=== PATIENT | female | born 1990 | race Asian ===

== ENCOUNTER 2016-08-30 20:31 | Emergency (ER) | payer OTHER ==
--- NOTE | 2016-08-30 23:21 | EDDOCDS ---
Nurse's Notes [facility] Name: Marie Barajas Age: 26 yrs Sex: Female : 1990 Arrival Date: 08/30/2016 Time: 20:31 Bed Triage 2 Private MD: Vincent Martino MD Diagnosis: Sprain of metatarsophalangeal joint of left great toe Presentation: 08/30 20:34 Presenting complaint: Patient states: PER PT SHE TRIPPED & FELL THIS MORNING ON HER tm5 STAIRS INJURED HER GREAT TOE ON HER LEFT FOOT, LEFT GREAT TOE WITH SWELLING & BRUISING NOTED. Adult Sepsis Screening: The patient does not have new or worsening altered mentation. Patient's respiratory rate is less than 22. Systolic blood pressure is greater than 100. Patient has a qSOFA score of 0- Negative Sepsis Screen. Suicide/Homicide risk assessment- the patient denies having any suicidal and/or homicidal ideations and does not present with any other emotional, behavioral or mental health complaints. Status: The patient is a dependent. Transition of care: patient was not received from another setting of care. 20:34 Acuity: XAVIER Level 4 tm5 20:34 Method Of Arrival: Walkin/Carried/Asstd tm5 Triage Assessment: 20:36 General: Appears in no apparent distress, Behavior is appropriate for age, cooperative. tm5 Pain: Location: left first toe and Left first toenail Pain currently is 6 out of 10 on a pain scale. Quality of pain is described as throbbing. Pt Declines HIV testing. Neurological: Level of Consciousness is awake, alert, Oriented to person, place, time. Respiratory: Airway is patent Respiratory effort is even, unlabored, Respiratory pattern is regular, symmetrical. Derm: Skin is pink, warm & dry. normal. Musculoskeletal: Swelling present in left first toe and Left first toenail Reports pain in left first toe and Left first toenail. DIRECTOR OF EVENT MANAGEMENT: 20:36 LMP N/A - control method tm5 Historical: - Allergies: no known allergies; - Home Meds: 1. BCP daily - PMHx: back pain; - PSHx: none; - Social history: Smoking status: Patient states was never smoker of tobacco. No barriers to communication noted, The patient speaks fluent [place]. - Family history: No immediate family members are acutely ill. - : The pt / caregiver states he / she is not on anticoagulants. Home medication list is obtained from the patient. - Exposure Risk Screening:: None identified. Screenin:38 Screening information is obtained from the patient. Fall risk: No risks identified. tm5 Assistance ADL's: requires no assistance with activities of daily living. Abuse/DV Screen: The patient / caregiver reports he/she is: not in a situation that causes fear, pain or injury. Nutritional screening: No deficits noted. Advance Directives: Currently, there is no health care proxy. There is no active DNR order. home support is adequate. Assessment: 22:34 General: Appears in no apparent distress, comfortable. Neurological: No deficits noted. nn1 Respiratory: No deficits noted. GI: No deficits noted. Musculoskeletal: Circulation, motion, and sensation intact Capillary refill < 3 seconds Range of motion limited in left first toe Bruising noted to left first toe. Patient reports she fell this AM on ice, patient states she has been walking all day and pain has become increasingly worse. Patient unable to move left first toe, sensation intact. 23:17 General: Left first toe carly taped to left second toe by provider, patient tolerated nn1 well. Patient understands discharge instructions at this time.. Neurological: Level of Consciousness is awake, alert. Respiratory: No deficits noted. Derm: Skin is pink, warm & dry. Vital Signs: 20:32 BP 112 / 82; Pulse 77; Resp 16; Temp 97.9; Pulse Ox 100% on R/A; Weight 96.16 kg; sew Height 5 ft. 5 in. (165.10 cm); Pain 6/10; 20:32 Body Mass Index 35.28 (96.16 kg, 165.10 cm) [facility] [place] Vitals: 20:32 Log In Time: August 30, 2016 at 20:31. [facility] ED Course: 20:32 Patient visited by Anika Campos. sew 20:32 Vincent Martino is Private Physician. sew 20:32 Patient moved to Waiting sew 20:33 Patient visited by Anika Campos. sew 20:33 Patient moved to Pre RCE sew 20:36 Triage Initiated tm5 22:31 Patient moved to Triage 2 nn1 22:35 Patient visited by Rodolfo Bella RN. nn1 22:43 Luis Santos PA is PHCP. mo1 22:43 Jeanmarie Medrano DO is Attending Physician. mo1 23:06 Patient visited by Luis Santos PA. mo1 23:13 Vincent Martino is Referral Physician. mo1 23:20 The patient / caregiver is instructed regarding the plan of care and ED course. nn1 23:20 No IV's were initiated during this patient's visit. No procedures done that require nn1 assistance. Order Results: There are currently no results for this order. Outcome: 23:13 Discharge ordered by Provider. mo1 23:20 Discharge Assessment: Patient awake, alert and oriented x 3. No cognitive and/or nn1 functional deficits noted. Patient verbalized understanding of disposition instructions. patient administered narcotics - no. The following High Risk Discharge criteria are identified: None. Discharged to home ambulatory. Condition: stable Condition: unchanged. No special radiology studies were completed. Property :Personal belongings accompany Pt. 23:20 Patient left the ED. nn1 Signatures: Anika Campos Michael, PA PA mo1 Rodolfo Bella RN RN nn1 Jessica LaceyRN RN tm5 [facility]
--- NOTE | 2016-08-30 23:21 | EDDOCDS ---
Physician Documentation [facility] Name: Marie Barajas Age: 26 yrs Sex: Female : 1990 Arrival Date: 08/30/2016 Time: 20:31 Bed Triage 2 Private MD: Vincent Martino MD Disposition: 08/30/16 23:13 Discharged to Home/Self Care. Impression: Sprain of metatarsophalangeal joint of left great toe. - Condition is Stable. - Discharge Instructions: Foot Sprain, Turf Toe. - Medication Reconciliation, Local Pharmacy Hours form. - Follow up: Vincent Martino; When: Call to arrange an appointment; Reason: Recheck today's complaints, Continuance of care. - Problem is new. - Symptoms are unchanged. Historical: - Allergies: no known allergies; - Home Meds: 1. BCP daily - PMHx: back pain; - PSHx: none; - Social history: Smoking status: Patient states was never smoker of tobacco. No barriers to communication noted, The patient speaks fluent Lao. - Family history: No immediate family members are acutely ill. - : The pt / caregiver states he / she is not on anticoagulants. Home medication list is obtained from the patient. - Exposure Risk Screening:: None identified. IMMUNOHEMATOLOGIST: 08/30 20:36 LMP N/A - control method tm5 Vital Signs: 20:32 BP 112 / 82; Pulse 77; Resp 16; Temp 97.9; Pulse Ox 100% on R/A; Weight 96.16 kg / 212 sew lbs; Height 5 ft. 5 in. (165.10 cm); Pain 6/10; 20:32 Body Mass Index 35.28 (96.16 kg, 165.10 cm) sew MDM: 22:10 Foot, Complete Ordered. EDMS 22:58 Toes Ordered. EDMS Signatures: Dispatcher [employer] EDMS Luis Santos PA PA mo1 Rodolfo Bella RN RN nn1 Jessica LaceyRN RN tm5 MTDD
--- NOTE | 2016-08-31 02:04 | REP ---
Clinical: Trauma. Technique: AP, lateral, bilateral oblique views left first toe . Findings: The osseous structures and joint spaces are intact and normal. There is no evidence for acute fracture or dislocation. Surrounding soft tissues are unremarkable. No subcutaneous emphysema or radiodense foreign body. Impression: Normal examination. No acute fracture or dislocation. Signed by Chris Souza MD 08/31/2016 01:55 A
--- NOTE | 2016-09-02 00:21 | EDDOCDS ---
Physician Documentation [facility] [place] Name: Marie Barajas Age: 26 yrs Sex: Female : 1990 Arrival Date: 08/30/2016 Time: 20:31 Bed Triage 2 Private MD: Vincent Martino MD Disposition: 08/30/16 23:13 Discharged to Home/Self Care. Impression: Sprain of metatarsophalangeal joint of left great toe. - Condition is Stable. - Discharge Instructions: Foot Sprain, Turf Toe. - Medication Reconciliation, Local Pharmacy Hours form. - Follow up: Vincent Martino; When: Call to arrange an appointment; Reason: Recheck today's complaints, Continuance of care. - Problem is new. - Symptoms are unchanged. Historical: - Allergies: no known allergies; - Home Meds: 1. BCP daily - PMHx: back pain; - PSHx: none; - Social history: Smoking status: Patient states was never smoker of tobacco. No barriers to communication noted, The patient speaks fluent Maltese. - Family history: No immediate family members are acutely ill. - : The pt / caregiver states he / she is not on anticoagulants. Home medication list is obtained from the patient. - Exposure Risk Screening:: None identified. NURSE PLASTICS: 08/30 20:36 LMP N/A - control method tm5 Vital Signs: 20:32 BP 112 / 82; Pulse 77; Resp 16; Temp 97.9; Pulse Ox 100% on R/A; Weight 96.16 kg / 212 sew lbs; Height 5 ft. 5 in. (165.10 cm); Pain 6/10; 23:21 BP 140 / 85; Pulse 65; Resp 18; Temp 98.0(T); Pulse Ox 97% on R/A; Pain 5/10; nn1 20:32 Body Mass Index 35.28 (96.16 kg, 165.10 cm) sew MDM: 22:10 Foot, Complete Ordered. EDMS 22:58 Toes Ordered. EDMS 08/31 11:06 T-Sheet-- Draft Copy was scanned into [employer] and attached to record. gb Signatures: Dispatcher [employer] EDMS Rama Triana, Reg Reg gb Luis Santos PA PA mo1 Rodolfo Bella,RN RN nn1 Jessica Lacey,RN RN tm5 The chart was reviewed and I authenticate all verbal orders and agree with the evaluation and treatment provided.Attachments: 11:06 T-Sheet-- Draft Copy gb Chart Complete MTDD
--- NOTE | 2016-09-02 00:21 | EDDOCDS ---
Physician Documentation [facility] Name: Marie Barajas Age: 26 yrs Sex: Female : 1990 Arrival Date: 08/30/2016 Time: 20:31 Bed Triage 2 Private MD: Vincent Martino MD Disposition: 08/30/16 23:13 Discharged to Home/Self Care. Impression: Sprain of metatarsophalangeal joint of left great toe. - Condition is Stable. - Discharge Instructions: Foot Sprain, Turf Toe. - Medication Reconciliation, Local Pharmacy Hours form. - Follow up: Vincent Martino; When: Call to arrange an appointment; Reason: Recheck today's complaints, Continuance of care. - Problem is new. - Symptoms are unchanged. Historical: - Allergies: no known allergies; - Home Meds: 1. BCP daily - PMHx: back pain; - PSHx: none; - Social history: Smoking status: Patient states was never smoker of tobacco. No barriers to communication noted, The patient speaks fluent Bengali. - Family history: No immediate family members are acutely ill. - : The pt / caregiver states he / she is not on anticoagulants. Home medication list is obtained from the patient. - Exposure Risk Screening:: None identified. MATERIALS MANAGEMENT CLERK: 08/30 20:36 LMP N/A - control method tm5 Vital Signs: 20:32 BP 112 / 82; Pulse 77; Resp 16; Temp 97.9; Pulse Ox 100% on R/A; Weight 96.16 kg / 212 sew lbs; Height 5 ft. 5 in. (165.10 cm); Pain 6/10; 23:21 BP 140 / 85; Pulse 65; Resp 18; Temp 98.0(T); Pulse Ox 97% on R/A; Pain 5/10; nn1 20:32 Body Mass Index 35.28 (96.16 kg, 165.10 cm) sew MDM: 22:10 Foot, Complete Ordered. EDMS 22:58 Toes Ordered. EDMS 08/31 11:06 T-Sheet-- Draft Copy was scanned into [employer] and attached to record. gb Signatures: Dispatcher [employer] EDMS Rama Triana, Reg Reg gb Luis Santos PA PA mo1 Rodolfo Bella,RN RN nn1 Jessica Lacey,RN RN tm5 The chart was reviewed and I authenticate all verbal orders and agree with the evaluation and treatment provided.Attachments: 11:06 T-Sheet-- Draft Copy gb Chart Complete MTDD
--- NOTE | 2016-09-02 00:21 | EDDOCDS ---
Nurse's Notes [facility] Name: Marie Barajas Age: 26 yrs Sex: Female : 1990 Arrival Date: 08/30/2016 Time: 20:31 Bed Triage 2 Private MD: Vincent Martino MD Diagnosis: Sprain of metatarsophalangeal joint of left great toe Presentation: 08/30 20:34 Presenting complaint: Patient states: PER PT SHE TRIPPED & FELL THIS MORNING ON HER tm5 STAIRS INJURED HER GREAT TOE ON HER LEFT FOOT, LEFT GREAT TOE WITH SWELLING & BRUISING NOTED. Adult Sepsis Screening: The patient does not have new or worsening altered mentation. Patient's respiratory rate is less than 22. Systolic blood pressure is greater than 100. Patient has a qSOFA score of 0- Negative Sepsis Screen. Suicide/Homicide risk assessment- the patient denies having any suicidal and/or homicidal ideations and does not present with any other emotional, behavioral or mental health complaints. Status: The patient is a dependent. Transition of care: patient was not received from another setting of care. 20:34 Acuity: XAVIER Level 4 tm5 20:34 Method Of Arrival: Walkin/Carried/Asstd tm5 Triage Assessment: 20:36 General: Appears in no apparent distress, Behavior is appropriate for age, cooperative. tm5 Pain: Location: left first toe and Left first toenail Pain currently is 6 out of 10 on a pain scale. Quality of pain is described as throbbing. Pt Declines HIV testing. Neurological: Level of Consciousness is awake, alert, Oriented to person, place, time. Respiratory: Airway is patent Respiratory effort is even, unlabored, Respiratory pattern is regular, symmetrical. Derm: Skin is pink, warm & dry. normal. Musculoskeletal: Swelling present in left first toe and Left first toenail Reports pain in left first toe and Left first toenail. BILINGUAL SALES ASSISTANT: 20:36 LMP N/A - control method tm5 Historical: - Allergies: no known allergies; - Home Meds: 1. BCP daily - PMHx: back pain; - PSHx: none; - Social history: Smoking status: Patient states was never smoker of tobacco. No barriers to communication noted, The patient speaks fluent Egyptian. - Family history: No immediate family members are acutely ill. - : The pt / caregiver states he / she is not on anticoagulants. Home medication list is obtained from the patient. - Exposure Risk Screening:: None identified. Screenin:38 Screening information is obtained from the patient. Fall risk: No risks identified. tm5 Assistance ADL's: requires no assistance with activities of daily living. Abuse/DV Screen: The patient / caregiver reports he/she is: not in a situation that causes fear, pain or injury. Nutritional screening: No deficits noted. Advance Directives: Currently, there is no health care proxy. There is no active DNR order. home support is adequate. Assessment: 22:34 General: Appears in no apparent distress, comfortable. Neurological: No deficits noted. nn1 Respiratory: No deficits noted. GI: No deficits noted. Musculoskeletal: Circulation, motion, and sensation intact Capillary refill < 3 seconds Range of motion limited in left first toe Bruising noted to left first toe. Patient reports she fell this AM on ice, patient states she has been walking all day and pain has become increasingly worse. Patient unable to move left first toe, sensation intact. 23:17 General: Left first toe carly taped to left second toe by provider, patient tolerated nn1 well. Patient understands discharge instructions at this time.. Neurological: Level of Consciousness is awake, alert. Respiratory: No deficits noted. Derm: Skin is pink, warm & dry. Vital Signs: 20:32 BP 112 / 82; Pulse 77; Resp 16; Temp 97.9; Pulse Ox 100% on R/A; Weight 96.16 kg; sew Height 5 ft. 5 in. (165.10 cm); Pain 6/10; 23:21 BP 140 / 85; Pulse 65; Resp 18; Temp 98.0(T); Pulse Ox 97% on R/A; Pain 5/10; nn1 20:32 Body Mass Index 35.28 (96.16 kg, 165.10 cm) [facility] [place] Vitals: 20:32 Log In Time: August 30, 2016 at 20:31. [facility] ED Course: 20:32 Patient visited by Anika Campos. sew 20:32 Vincent Martino is Private Physician. sew 20:32 Patient moved to Waiting sew 20:33 Patient visited by Anika Campos. sew 20:33 Patient moved to Pre RCE sew 20:36 Triage Initiated tm5 22:31 Patient moved to Triage 2 nn1 22:35 Patient visited by Rodolfo Bella RN. nn1 22:43 Luis Santos PA is PHCP. mo1 22:43 Jeanmarie Medrano DO is Attending Physician. mo1 23:06 Patient visited by Luis Santos PA. mo1 23:13 Vincent Martino is Referral Physician. mo1 23:20 The patient / caregiver is instructed regarding the plan of care and ED course. nn1 23:20 No IV's were initiated during this patient's visit. No procedures done that require nn1 assistance. 08/31 02:38 Toes Returned. EDOR 11:06 T-Sheet-- Draft Copy was scanned into [employer] and attached to record. Order Results: Radiology Order: Toes Test: Toes REASON FOR EXAMINATION: left greater toe; Clinical: Trauma.; ; Technique: AP, lateral, bilateral oblique views left first toe .; ; Findings: The osseous structures and joint spaces are intact and normal. There; is no evidence for acute fracture or dislocation. Surrounding soft tissues are; unremarkable. No subcutaneous emphysema or radiodense foreign body.; ; Impression:; Normal examination. No acute fracture or dislocation.; ; ; Signed by; Chris Souza MD 08/31/2016 01:55 A; Outcome: 08/30 23:13 Discharge ordered by Provider. mo1 23:20 Discharge Assessment: Patient awake, alert and oriented x 3. No cognitive and/or nn1 functional deficits noted. Patient verbalized understanding of disposition instructions. patient administered narcotics - no. The following High Risk Discharge criteria are identified: None. Discharged to home ambulatory. Condition: stable Condition: unchanged. No special radiology studies were completed. Property :Personal belongings accompany Pt. 23:20 Patient left the ED. nn1 Signatures: Dispatcher [employer] EDOR Rama Triana, Salbador Mercedesace Anika Luis Guzman PA PA mo1 Rodolfo Bella,MIKE RN nn1 Jessica Lacey RN RN tm5 Chart Complete MTDD
== END 2016-08-30 23:20 | disposition home or self-care (01) ==
LOC: M ED 20:31
DX: S93.522A Sprain of metatarsophalangeal joint of left great toe, initial encounter (principal); W01.10XA Fall on same level from slipping, tripping and stumbling with subsequent striking against unspecified object, initial encounter; Y92.019 Unspecified place in single-family (private) house as the place of occurrence of the external cause; Y93.01 Activity, walking, marching and hiking; Y99.8 Other external cause status; M54.9 Dorsalgia, unspecified

== ENCOUNTER → 2016-09-18 | Outpatient (REF) | payer OTHER | LOC: M LAB REF 11:05 | PROVIDERS: ATTEND Family Medicine | DX: Z12.4 Encounter for screening for malignant neoplasm of cervix (principal) ==

== ENCOUNTER → 2016-09-25 | Outpatient (REF) | payer OTHER ==
[2016-09-25 14:41] LABS: ANION GAP 9 MEQ/L (8-16); BLOOD UREA NITROGEN 11 MG/DL (7-18); CARBON DIOXIDE LEVEL 26 MEQ/L (21-32); CHLORIDE LEVEL 105 MEQ/L (98-107); CHOLESTEROL LEVEL 202 MG/DL (<200); CREATININE FOR GFR 0.67 MG/DL (0.55-1.02); FREE T4 0.95 NG/DL (0.76-1.46); GLOMERULAR FILTRATION RATE > 60.0 (>60); GLUCOSE, FASTING 112 MG/DL (70-105); POTASSIUM SERUM 4.7 MEQ/L (3.5-5.1); SODIUM LEVEL 140 MEQ/L (136-145); TRIGLYCERIDES LEVEL 186 MG/DL (<150)
== END ==
LOC: M SFHCLERA 08:50
PROVIDERS: ATTEND Family Medicine
DX: E28.2 Polycystic ovarian syndrome (principal)

== ENCOUNTER → 2016-09-27 | Outpatient (CLI) | payer OTHER ==
--- NOTE | 2016-09-28 16:09 | REP ---
THYROID ULTRASOUND: 09/27/2016: Clinical history: Enlarged thyroid on clinical examination. Findings: The bilateral thyroid lobes fairly symmetric. The right is 4.8 x 1.9 x 1.6 cm and the left lobe is 5 x 1.5 x 1.4 cm. Both lobes are somewhat heterogeneous. There is a hyperechoic area in the right lobe in its midportion about 4 x 2 x 5 mm. The isthmus has a thickness of 5 mm and was unremarkable. I do not see cyst or other solid mass. Impression: 1. Heterogeneous thyroid lobes, slightly prominent with one hyperechoic focus right mid pole about 4 x 5 x 2 mm that may be calcified. No cyst, fluid collection adjacent to the thyroid lobes in the neck or adenopathy. Findings most consistent with mild enlargement/goiter. Signed by Brennan Gonzalez MD 09/28/2016 04:58 P
== END ==
LOC: M LRY 13:50
PROVIDERS: ATTEND Family Medicine
DX: E01.0 Iodine-deficiency related diffuse (endemic) goiter (principal)

== ENCOUNTER → 2016-12-20 | Outpatient (REF) | payer OTHER | LOC: M SFHCLERA 10:21 | PROVIDERS: ATTEND Nurse Practitioner Family | DX: J02.9 Acute pharyngitis, unspecified (principal) ==